=== PATIENT | male | born 1990 | race Caucasian/White ===

== ENCOUNTER 2016-09-19 15:33 | Emergency (ER) ==
[2016-09-19 15:40] VITALS: BP 158/101; TEMP 98.5; BMI 39.1
--- NOTE | 2016-09-19 15:53 | ED.PDOC ---
General ED Provider: Dr. VIVI MG JR Chief Complaint: Knee Pain/Injury Stated Complaint: PT FELL DOWN SLICK STAIRS AND HURT RIGHT KNEE - ANTERIOR. [ End ] 0NE HOUR 98.5 89 20 97% 158/101 8. CHOLECYSTECTOMY, CYST REMOVED FROM THROAT. RIGHT KNEE MENISCUS TEAR Time Seen by Physician: 15:52 Mode of Arrival: Walk-In Information Source: Patient Exam Limitations: No limitations Nursing and Triage Documentation Reviewed and Agree: No Review of Systems - Review Of Systems Constitutional: Reports: No symptoms Eyes: Reports: No symptoms Ears, Nose, Mouth, Throat: Reports: No symptoms Respiratory: Reports: No symptoms Cardiac: Reports: No symptoms GI: Reports: No symptoms : Reports: No symptoms Musculoskeletal: Reports: Joint pain (RIGHT KNEE ESPECIALL ANT INFERIOR AND RIGHT LATRERAL QUADRICEPS PAIN WITH OUT FOCAL TENDERNESS), Muscle pain Skin: Reports: No symptoms Neurological: Reports: No symptoms Endocrine: Reports: No symptoms Hematologic/Lymphatic: Reports: No symptoms All Other Systems: Other Past Medical History - Past Medical History Previously Healthy: Yes Endocrine: Reports: None Cardiovascular: Reports: None Respiratory: Reports: None Hematological: Reports: None Gastrointestinal: Reports: None Genitourinary: Reports: None Neuro/Psych: Reports: None Musculoskeletal: Reports: Joint Pain (RIGHT KNEE MENISCUS TEAR) Cancer: Reports: None - Surgical History General Surgical History: Reports: Cholecystectomy, Other ( CYST REMOVED FROM THROAT ). Denies: Orthopedic (RIGHT KNEE MENISCUS TEAR-DID NOT HAVE SURGERY DUE TO INSURANCE) - Family History Family History: Reports: Unknown - Social History Smoking Status: Current every day smoker, Light tobacco smoker Hx Substance Use: No Alcohol Screening: None Physical Exam - Physical Exam Appearance: Well-appearing Pain Distress: Moderate Neck: Supple Respiratory: Airway patent Musculoskeletal: Normal strength, ROM intact, No edema, No calf tenderness ( TENDER RIGHT KNEE GOOD ROM) Skin: Warm, Dry, Normal color Critical Care Note - Critical Care Note Total Time (mins): 0 Course - Course Orders, Labs, Meds: Orders Category Date Time Status CRUTCHES [ED CRUTCHES] .ONCE EMERGENCY 09/19/16 16:27 Active ED KEITH WRAP .ONCE EMERGENCY 09/19/16 16:27 Active Hydrocodone Bit/Acetaminophen [[place] 7.5-325] MEDS 09/19/16 16:56 Stat 1 tab PO ONCE STA Ketorolac Tromethamine [Toradol] MEDS 09/19/16 16:00 Discontinued 60 mg IM ONCE STA Promethazine HCl [Phenergan 25 mg/ml Vial] MEDS 09/19/16 16:00 Discontinued 25 mg IM ONCE STA KNEE, RIGHT 4 VIEWS Stat RADS 09/19/16 16:00 Completed Medications Discontinued Medications Generic Name Dose Route Start Last Admin Trade Name Gemma PRN Reason Stop Dose Admin Ketorolac Tromethamine 60 mg 09/19/16 16:00 09/19/16 16:14 Toradol IM 09/19/16 16:01 60 mg ONCE STA Administration Promethazine HCl 25 mg 09/19/16 16:00 09/19/16 16:15 Phenergan 25 Mg/Ml Vial IM 09/19/16 16:01 25 mg ONCE STA Administration Vital Signs: Temp Pulse Resp BP Pulse Ox 09/19/16 15:34 98.5 F 89 20 158/101 H 97 Departure - Departure Time of Disposition: 16:48 Disposition: HOME SELF-CARE Discharge Problem: Injury of knee Instructions: Meniscus Tear (ED) Condition: Good Pt referred to PMD for follow-up: Yes Additional Instructions: FOLLOW UP WITH PMD MAY FOLLOW WITH [facility] RECOMMEND ORTHOPEDIC EVALUATION MRI MAY BE INDICATED OF KNEE LIMIT WEIGH ON KNEE FOR THREE DAYS KEITH FOR COMFORT ICE THREE TIMES A DAY TORADOL FOR PAIN, NORCO FOR PAIN NOT RELIEVED BY TORADOL Prescriptions: Hydrocodone Bit/Acetaminophen [[place] 5-325] 1 - 2 tab PO Q6HR PRN #12 tablet PRN Reason: pain Ketorolac Tromethamine [Toradol] 10 mg PO QID PRN #20 tablet PRN Reason: PAIN Allergies/Adverse Reactions: Allergies No Known Allergies Allergy (Verified 09/19/16 15:36) Home Medications: Ambulatory Orders Hydrocodone Bit/Acetaminophen [[place] 5-325] 1 - 2 tab PO Q6HR PRN #12 tablet 08/02 Ketorolac Tromethamine [Toradol] 10 mg PO QID PRN #20 tablet 09/19/16
[2016-09-19] MEDS ORDERED: PHENERGAN 25 MG/ML VIAL IM STA (16:00)
[2016-09-19] MEDS ORDERED: TORADOL IM STA (16:00)
--- NOTE | 2016-09-19 16:18 | DI ---
EXAM: Four views of the right knee. History: Right knee pain and trauma. Findings: No acute fracture or dislocation. Joint spaces are preserved. No radiopaque foreign bod ies. Impression: No acute osseous abnormality.
[2016-09-19] MEDS ORDERED: NORCO 7.5-325 PO STA (16:56)
== END 2016-09-19 17:04 | disposition home or self-care (01) ==
LOC: ED 15:33
DX: M25.561 Pain in right knee (principal); M23.206 Derangement of unspecified meniscus due to old tear or injury, right knee; F17.210 Nicotine dependence, cigarettes, uncomplicated; W10.9XXA Fall (on) (from) unspecified stairs and steps, initial encounter
CPT/HCPCS: 96372; 99283

== ENCOUNTER 2016-10-22 22:31 | Emergency (ER) ==
[2016-10-22 22:36] VITALS: BP 158/76; TEMP 99.7; BMI 38.2
[2016-10-22] MEDS ORDERED: MORPHINE 2 MG/ML SYRINGE IVP STA (22:42)
[2016-10-22] MEDS ORDERED: ZOFRAN 4 MG/2 ML IVP STA (22:42)
--- NOTE | 2016-10-22 22:47 | ED.PDOC ---
General ED Provider: Dr. LAURO MATTHEWS-ER Chief Complaint: Urinary Problem Stated Complaint: i moved a bed and now my left testicle hurts --motrin is not helping Time Seen by Physician: 22:35 Mode of Arrival: Walk-In Information Source: Family Exam Limitations: No limitations Nursing and Triage Documentation Reviewed and Agree: Yes Complaint Exam - Complaint/Exam Patient Complains of: Reports: Scrotal pain, Groin pain Onset/Duration: several hours Symptoms Are: Still present Timing: Constant Initial Severity: Moderate Current Severity: Moderate Location of Pain: Reports: Left, Scrotum, Testicle Character: Reports: Burning, Dull, Cramping Aggravating: Reports: Straining, Palpation Alleviating: Reports: Scrotal elevation Associated Signs and Symptoms: Reports: Scrotal pain. Denies: Diaphoresis, Back pain, Fever, Hematuria, Dysuria, Constipation, Blood in stool, Rectal pain , Appetite change, Nausea, Vomiting, Penile swelling, Penile discharge, Decreased urine output, Increased urine frequency, Increased thirst, Decreased activity, Scrotal swelling Surgical Obstruction Risk Factors: Reports: None Abdominal Findings: Present: None Genitalia Exam: Present: Testes asymmetrical, Testes tender Differential Diagnoses: Testicular Torsion Review of Systems - Review Of Systems Constitutional: Reports: No symptoms Eyes: Reports: No symptoms Ears, Nose, Mouth, Throat: Reports: No symptoms Respiratory: Reports: No symptoms Cardiac: Reports: No symptoms GI: Reports: No symptoms : Reports: Pain Musculoskeletal: Reports: No symptoms Skin: Reports: No symptoms Neurological: Reports: No symptoms Endocrine: Reports: No symptoms Hematologic/Lymphatic: Reports: No symptoms All Other Systems: Reviewed and Negative Past Medical History - Past Medical History Previously Healthy: Yes Endocrine: Reports: None Cardiovascular: Reports: None Respiratory: Reports: None Hematological: Reports: None Gastrointestinal: Reports: None Genitourinary: Reports: None Neuro/Psych: Reports: None Musculoskeletal: Reports: Joint Pain (RIGHT KNEE MENISCUS TEAR) Cancer: Reports: None - Surgical History General Surgical History: Reports: Cholecystectomy, Other ( CYST REMOVED FROM THROAT ). Denies: Orthopedic (RIGHT KNEE MENISCUS TEAR-DID NOT HAVE SURGERY DUE TO INSURANCE) - Family History Family History: Reports: Unknown - Social History Smoking Status: Current some day smoker Hx Substance Use: No Alcohol Screening: None Lives: With family - Immunizations Tetanus Shot up to Date: Yes Physical Exam - Physical Exam Appearance: Well-appearing, No pain distress, Well-nourished Pain Distress: Moderate Eyes: SILVIA, EOMI, Conjunctiva clear ENT: Ears normal, Nose normal, Oropharynx normal Neck: Supple Respiratory: Airway patent Cardiovascular: RRR, Pulses normal, No rub, No murmur GI/: Soft, No masses, Bowel sounds normal, No Organomegaly, Tender (left scrotum tender and left testicle elevated) Musculoskeletal: Normal strength, ROM intact, No edema, No calf tenderness Skin: Warm Neurological: Sensation intact Psychiatric: Affect appropriate Physician Notification - Case Discussed Physician Notified: dr membreno---graciously accepted in transfer Time of Notification: 22:53 Critical Care Note - Critical Care Note Total Time (mins): 0 Course - Course Orders, Labs, Meds: Orders Category Date Time Status IV [ED IV/MEDIPORT/POWERPORT] .ONCE EMERGENCY 10/22/16 22:42 Active 0.9 % Sodium Chloride [Saline Flush] MEDS 10/22/16 22:42 Ordered 1 syr IVF PRN PRN Morphine Sulfate [Morphine 2 mg/ml Syringe] MEDS 10/22/16 22:42 Discontinued 2 mg IVP ONCE STA Ondansetron HCl/Pf [Zofran 4 mg/2 ml] MEDS 10/22/16 22:42 Discontinued 4 mg IVP ONCE STA Medications Generic Name Dose Route Start Last Admin Trade Name Freq PRN Reason Stop Dose Admin Sodium Chloride 1 syr 10/22/16 22:42 Saline Flush IVF PRN PRN To flush IV Discontinued Medications Generic Name Dose Route Start Last Admin Trade Name Freq PRN Reason Stop Dose Admin Morphine Sulfate 2 mg 10/22/16 22:42 Morphine 2 Mg/Ml Syringe IVP 10/22/16 22:43 ONCE STA Ondansetron HCl 4 mg 10/22/16 22:42 Zofran 4 Mg/2 Ml IVP 10/22/16 22:43 ONCE STA Vital Signs: Temp Pulse Resp BP Pulse Ox 10/22/16 22:32 99.7 F H 10 L 20 158/76 H 94 L Departure - Departure Time of Disposition: 22:53 Disposition: TSF SHORT-TRM HOSP Discharge Problem: Pain in left testicle Instructions: Testicle Pain (ED), Scrotal Pain (ED) Condition: Good Pt referred to PMD for follow-up: Yes Allergies/Adverse Reactions: Allergies No Known Allergies Allergy (Verified 10/22/16 22:38) Home Medications: Ambulatory Orders Hydrocodone Bit/Acetaminophen [[place] 5-325] 1 - 2 tab PO Q6HR PRN #12 tablet 08/02 Ketorolac Tromethamine [Toradol] 10 mg PO QID PRN #20 tablet 09/19/16 Transfer Form Completed: Yes Disposition Discussed With: Patient, Family
== END 2016-10-22 23:21 | disposition short-term general hospital (02) ==
LOC: ED 22:31
DX: N50.812 Left testicular pain (principal); F17.210 Nicotine dependence, cigarettes, uncomplicated; X50.0XXA Overexertion from strenuous movement or load, initial encounter
CPT/HCPCS: 96374; 96375; 99283

== ENCOUNTER 2016-10-22 23:20 | Outpatient (CLI) ==
[2016-10-22 22:36] VITALS: BMI 38.2
== END 2016-10-22 23:21 | disposition short-term general hospital (02) ==
LOC: AMBL 23:20
PROVIDERS: ATTEND Family Medicine
DX: N50.812 Left testicular pain (principal); X50.0XXA Overexertion from strenuous movement or load, initial encounter

== ENCOUNTER 2017-03-02 20:52 | Emergency (ER) ==
[2017-03-02 20:57] VITALS: TEMP 99.7; BMI 37.0
[2017-03-02] MEDS ORDERED: TORADOL IM STA (21:18)
--- NOTE | 2017-03-02 21:23 | ED.PDOC ---
General ED Provider: Dr. ANANT YO Chief Complaint: Back Pain Stated Complaint: Been hurting in the right lower back, was doing the shifting and moving. Time Seen by Physician: 21:20 Mode of Arrival: Walk-In Information Source: Patient Nursing and Triage Documentation Reviewed and Agree: Yes Musculoskeletal Complaint Exam - Back Pain Complaint/Exam Mechanism of Injury: Reports: No known trauma Symptoms Are: Still present Timing: Constant Episodes Lasting: Days Initial Severity: Moderate Current Severity: Moderate Location: Reports: Discrete Character: Reports: Aching, Throbbing Aggravating: Reports: Movements Alleviating: Reports: None Associated Signs and Symptoms: Denies: Swelling, Redness, Bruising, Fever, Weakness, Numbness, Tingling, Abdominal pain, Flank pain, Bladder incontinence, Bowel incontinence, Weight loss, Pain with weight bearing Related History: Reports: Similar episode TAD Risk Factors: Reports: None AAA Risk Factors: Reports: None Cauda Equina Risk Factors: Reports: None Epidural Abcess Risk Factors: Reports: None Related Surgical History: Reports: None Focal Tenderness: Yes Paraspinal Muscle Tenderness: Yes Paraspinal Muscle Spasm: Yes Scoliosis: No Lordosis: No Kyphosis: No SLR Test: Right Negative, Left Negative Hip Motion Testing Pain: Right Negative, Left Negative Focal Weakness: Present: None Focal Sensory Loss: Present: None Gait: Present: Normal Differential Diagnoses: Strain Review of Systems - Review Of Systems Constitutional: Reports: No symptoms Eyes: Reports: No symptoms Ears, Nose, Mouth, Throat: Reports: No symptoms Respiratory: Reports: No symptoms Cardiac: Reports: No symptoms GI: Reports: No symptoms : Reports: No symptoms Musculoskeletal: Reports: Back pain, Muscle stiffness Skin: Reports: No symptoms Neurological: Reports: No symptoms Endocrine: Reports: No symptoms Hematologic/Lymphatic: Reports: No symptoms All Other Systems: Reviewed and Negative Past Medical History - Past Medical History Previously Healthy: Yes Endocrine: Reports: None Cardiovascular: Reports: None Respiratory: Reports: None Hematological: Reports: None Gastrointestinal: Reports: None Genitourinary: Reports: None Neuro/Psych: Reports: None Musculoskeletal: Reports: Joint Pain (RIGHT KNEE MENISCUS TEAR) Cancer: Reports: None - Surgical History General Surgical History: Reports: Cholecystectomy, Other ( CYST REMOVED FROM THROAT ). Denies: Orthopedic (RIGHT KNEE MENISCUS TEAR-DID NOT HAVE SURGERY DUE TO INSURANCE) - Family History Family History: Reports: Unknown - Social History Smoking Status: Current some day smoker Smoking Cessation Counseling Time: > 3 min - 10 min Hx Substance Use: No Alcohol Screening: None - Immunizations Tetanus Shot up to Date: Yes Physical Exam - Physical Exam Appearance: Well-appearing, Well-nourished Pain Distress: Mild Eyes: SILVIA, EOMI, Conjunctiva clear ENT: Ears normal, Nose normal, Oropharynx normal Respiratory: Airway patent, Breath sounds clear, Breath sounds equal, Respirations nonlabored Cardiovascular: RRR, Pulses normal, No rub, No murmur GI/: Soft, Nontender, No masses, Bowel sounds normal, No Organomegaly Musculoskeletal: No edema, No calf tenderness, Limited ROM, Limited strength Skin: Warm, Dry, Normal color Neurological: Sensation intact, Motor intact, Reflexes intact, Cranial nerves intact, Alert, Oriented Psychiatric: Affect appropriate, Mood appropriate Interpretation - Radiology Interpretation Radiology Interpretation By: ED Physician Radiology Results: Negative Critical Care Note - Critical Care Note Total Time (mins): 0 Course - Course Orders, Labs, Meds: Orders Category Date Time Status Ketorolac Tromethamine [Toradol] MEDS 03/02/17 21:18 Discontinued 30 mg IM ONCE STA LUMBAR SPINE, 2 OR 3 VIEWS Stat RADS 03/02/17 21:18 Ordered Medications Discontinued Medications Generic Name Dose Route Start Last Admin Trade Name Gemma PRN Reason Stop Dose Admin Ketorolac Tromethamine 30 mg 03/02/17 21:18 Toradol IM 03/02/17 21:19 ONCE STA Vital Signs: Temp Pulse Resp BP Pulse Ox 03/02/17 20:53 99.7 F H 115 H 20 173/94 H 98 Departure - Departure Time of Disposition: 21:24 Disposition: HOME SELF-CARE Discharge Problem: Backache Instructions: Low Back Strain (ED) Condition: Good Pt referred to PMD for follow-up: Yes Additional Instructions: Rest Hot pack, keep checking the BP. Prescriptions: Cyclobenzaprine HCl [Flexeril] 5 mg PO BID #14 tablet Tramadol HCl 50 mg PO BID #14 tablet Allergies/Adverse Reactions: Allergies No Known Allergies Allergy (Verified 03/02/17 20:58) Home Medications: Ambulatory Orders Cyclobenzaprine HCl [Flexeril] 5 mg PO BID #14 tablet 03/02/17 Tramadol HCl 50 mg PO BID #14 tablet 03/02/17 Disposition Discussed With: Patient
[2017-03-02 22:19] VITALS: BP 146/74
--- NOTE | 2017-03-03 07:20 | DI ---
Exam: Three x-rays of the lumbar spine. Comparison: None available. Reason for exam: Back pain. FINDINGS: No acute fracture or listhesis in the lumbar spine. The vertebral bodies intervertebral b catarino disc space heights are relatively well maintained. There may be a small, chronic-appearing compr ession deformity in the the T11 vertebral body. No significant degenerative disease. Impression: 1. No acute fracture or listhesis in the lumbar spine. 2. Possible, chronic-appearing compression deformity in the T11 vertebral body.
== END 2017-03-02 22:15 | disposition home or self-care (01) ==
LOC: ED 20:52
DX: M54.5 Low back pain (principal); R03.0 Elevated blood-pressure reading, without diagnosis of hypertension; F17.210 Nicotine dependence, cigarettes, uncomplicated
CPT/HCPCS: 96372; 99282

== ENCOUNTER 2017-04-16 20:09 | Emergency (ER) ==
[2017-04-16 20:14] VITALS: BP 162/99; TEMP 98.9; BMI 38.2
[2017-04-16] MEDS ORDERED: TORADOL IM STA (20:42)
--- NOTE | 2017-04-16 20:46 | ED.PDOC ---
General ED Provider: Dr. ANANT YO Chief Complaint: Back Pain Stated Complaint: Came for the lower back pain, was working on the car, he has to pull it, ever since hurting in tail bone. hurts to walk and stand Time Seen by Physician: 20:44 Mode of Arrival: Walk-In Information Source: Patient Nursing and Triage Documentation Reviewed and Agree: Yes Reviewed sepsis parameters & appropriate labs ordered?: Yes System Inflammatory Response Syndrome: Not Applicable Sepsis Protocol: For patient's 13 years and over: Temp is 96.8 and below OR 101 and greater Pulse >90 BPM Resp >20/minute Acutely Altered Mental Status Are patient's symptoms suggestive of a new infection, such as: -Pneumonia -Skin, Soft Tissue -Endocarditis -UTI -Bone, Joint Infection -Implantable Device -Acute Abdominal Infection -Wound Infection -Meningitis -Blood Stream Catheter Infection -Unknown Musculoskeletal Complaint Exam - Back Pain Complaint/Exam Mechanism of Injury: Reports: No known trauma Symptoms Are: Still present Timing: Constant Episodes Lasting: Days Initial Severity: Moderate Current Severity: Severe Location: Reports: Discrete Character: Reports: Aching, Throbbing Aggravating: Reports: Movements, Lifting, Bending, Walking Alleviating: Reports: None Associated Signs and Symptoms: Denies: Swelling, Redness, Bruising, Fever, Weakness, Numbness, Tingling, Abdominal pain, Flank pain, Bladder incontinence, Bowel incontinence, Weight loss, Pain with weight bearing Related History: Reports: Similar episode TAD Risk Factors: Reports: None AAA Risk Factors: Reports: None Cauda Equina Risk Factors: Reports: None Epidural Abcess Risk Factors: Reports: None Related Surgical History: Reports: None Focal Tenderness: Yes Paraspinal Muscle Tenderness: Yes Paraspinal Muscle Spasm: Yes Scoliosis: No Lordosis: No Kyphosis: No SLR Test: Right Negative, Left Negative Hip Motion Testing Pain: Right Negative, Left Negative Focal Weakness: Present: None Focal Sensory Loss: Present: None Gait: Present: Normal Differential Diagnoses: Fracture, Strain Review of Systems - Review Of Systems Constitutional: Reports: No symptoms Eyes: Reports: No symptoms Ears, Nose, Mouth, Throat: Reports: No symptoms Respiratory: Reports: No symptoms Cardiac: Reports: No symptoms GI: Reports: No symptoms : Reports: No symptoms Musculoskeletal: Reports: Back pain, Muscle pain Skin: Reports: No symptoms Neurological: Reports: No symptoms Endocrine: Reports: No symptoms Hematologic/Lymphatic: Reports: No symptoms All Other Systems: Reviewed and Negative Past Medical History - Past Medical History Previously Healthy: Yes Endocrine: Reports: None Cardiovascular: Reports: None Respiratory: Reports: None Hematological: Reports: None Gastrointestinal: Reports: None Genitourinary: Reports: None Neuro/Psych: Reports: None Musculoskeletal: Reports: Joint Pain (RIGHT KNEE MENISCUS TEAR) Cancer: Reports: None - Surgical History General Surgical History: Reports: Cholecystectomy, Other ( CYST REMOVED FROM THROAT ). Denies: Orthopedic (RIGHT KNEE MENISCUS TEAR-DID NOT HAVE SURGERY DUE TO INSURANCE) - Family History Family History: Reports: Unknown - Social History Smoking Status: Current every day smoker, Heavy tobacco smoker Smoking Cessation Counseling Time: > 3 min - 10 min Hx Substance Use: No Alcohol Screening: None - Immunizations Tetanus Shot up to Date: Yes Physical Exam - Physical Exam Appearance: Ill-appearing, Obese Eyes: SILVIA, EOMI, Conjunctiva clear ENT: Ears normal, Nose normal, Oropharynx normal Respiratory: Airway patent, Breath sounds clear, Breath sounds equal, Respirations nonlabored Cardiovascular: RRR, Pulses normal, No rub, No murmur GI/: Soft, Nontender, No masses, Bowel sounds normal, No Organomegaly Musculoskeletal: Limited ROM, Limited strength Skin: Warm, Dry, Normal color Neurological: Sensation intact, Motor intact, Reflexes intact, Cranial nerves intact, Alert, Oriented Psychiatric: Affect appropriate, Mood appropriate Interpretation - Radiology Interpretation Radiology Interpretation By: Radiologist Radiology Results: Negative Exam Interpreted: CT Scan Critical Care Note - Critical Care Note Total Time (mins): 15 Course - Course Orders, Labs, Meds: Orders Category Date Time Status Ketorolac Tromethamine [Toradol] MEDS 04/16/17 20:42 Discontinued 30 mg IM ONCE STA CT LUMBAR SPINE W/O CONTRAST Stat RADS 04/16/17 20:42 Taken Medications Discontinued Medications Generic Name Dose Route Start Last Admin Trade Name Freq PRN Reason Stop Dose Admin Ketorolac Tromethamine 30 mg 04/16/17 20:42 04/16/17 21:04 Toradol IM 04/16/17 20:43 30 mg ONCE STA Administration Vital Signs: Temp Pulse Resp BP Pulse Ox 04/16/17 20:10 98.9 F 80 18 162/99 H 95 Departure - Departure Time of Disposition: 21:26 Disposition: HOME SELF-CARE Discharge Problem: Backache Instructions: Lumbar Radiculopathy (ED) Condition: Good Pt referred to PMD for follow-up: Yes Additional Instructions: Rest Hot pack Prescriptions: Tramadol HCl 50 mg PO BID #14 tablet Allergies/Adverse Reactions: Allergies No Known Allergies Allergy (Verified 04/16/17 20:14) Home Medications: Ambulatory Orders Cephalexin [Keflex] 500 mg PO Q6HR 04/16/17 Ibuprofen 600 mg PO Q6H PRN 04/16/17 Ketorolac Tromethamine [Toradol] 10 mg PO BID PRN 04/16/17 Tramadol HCl 50 mg PO BID #14 tablet 04/16/17 Disposition Discussed With: Patient
--- NOTE | 2017-04-16 21:44 | CT ---
EXAM: CT lumbar spine without contrast. HISTORY: Back pain COMPARISON: Lumbar spine series from 03/02/2017 TECHNIQUE: Helical axial CT of the lumbar spine was performed without contrast with coronal and sagi ttal reconstructions. FINDINGS: There is some minimal chronic appearing vertebral body height loss involving the anterior aspect of the T11 vertebral body. Alignment is anatomic. The sacral ala and sacroiliac joints are un remarkable. There are 5 lumbar type vertebral bodies. There is no significant foraminal or central c anal narrowing. T12-L1: There is mild disc space narrowing and some minimal anterior osteophytosis. L1-L2: There is some minimal disc space narrowing. L2-L3: Normal L3-L4: Normal L4-L5: There is some minimal bulging. L5-S1: There are bilateral pars defects with minimal disc bulging. Limited views of the soft tissues show no acute abnormality. IMPRESSION: 1. 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 2. Minimal chronic appearing vertebral body height loss involving the anterior aspect of T11 vertebr al body. 3. Widely patent foramina and canal.
== END 2017-04-16 21:54 | disposition home or self-care (01) ==
LOC: ED 20:09
DX: M54.5 Low back pain (principal); X50.0XXA Overexertion from strenuous movement or load, initial encounter; F17.210 Nicotine dependence, cigarettes, uncomplicated
CPT/HCPCS: 96372; 99283